=== PATIENT | female | born 1975 | race Caucasian/White ===

== ENCOUNTER 2017-07-18 15:52 | Emergency (ER) | payer MEDICAID ==
[~2017-07-18] VITALS: Ht 157.5 cm; Wt 78.0 kg
[~2017-07-18 15:52] MED LIST: ONDA4TAB35 PO
[2017-07-18 15:54] VITALS: Ht 157.5 cm; Wt 78.0 kg
[2017-07-18] MEDS ORDERED: ACETAMINOPHEN 500 MG TAB PO STA (16:45)
[2017-07-18] MEDS ORDERED: MECLIZINE 12.5 MG TAB PO ONE (17:00)
--- NOTE | 2017-07-18 17:00 | ERD ---
ER Documentation Chief Complaint Chief Complaint felt dizzy x 2 today HPI This 42-year-old female who presents to the emergency department for any of frequent nosebleeds for the past 3 months. States that she started feeling dizzy today. States that she has had a headache for the past 3 days and she is taking ibuprofen and it goes away but then comes back. States that she does have some body aches but denies any fevers or chills, dysuria ROS All systems reviewed and are negative except as per history of present illness. Medications Home Meds Active Scripts Meclizine Hcl* (Antivert*) 12.5 Mg Tab, 25 MG PO Q6H Y for DIZZINESS, #20 TAB Prov:JUDD HAYES PA-C 07/18/17 Naproxen* (Naprosyn*) 500 Mg Tablet, 500 MG PO BID Y for PAIN AND/OR INFLAMMATION, #30 TAB Prov:JUDD HAYES PA-C 07/18/17 Sodium Chloride (Saline Nasal Mist) 126 Ml Mist, 2 SPRAY NASAL DAILY, #1 BOTTLE Prov:JUDD HAYES PA-C 07/18/17 Acetaminophen* (Tylophen*) 500 Mg Capsule, 1 CAP PO Q6H Y for PAIN AND OR ELEVATED TEMP, #30 CAP Prov:JUDD HAYES PA-C 07/18/17 Ondansetron Hcl* (Zofran* ODT) 4 mg -ODT Tab.disper, 4 MG PO Q8 Y for NAUSEA AND /OR VOMITING, #30 TAB Prov:JOSEF KEMP NP 03/14/15 Allergies Allergies: Coded Allergies: No Known Allergy (Unverified , 03/14/15) PMhx/Soc Medical and Surgical Hx: pt denies Medical Hx, pt denies Surgical Hx History of Surgery: No Anesthesia Reaction: No Hx Neurological Disorder: No Hx Respiratory Disorders: No Hx Cardiac Disorders: No Hx Psychiatric Problems: No Hx Miscellaneous Medical Probl: No Hx Alcohol Use: No Hx Substance Use: No Hx Tobacco Use: No Smoking Status: Never smoker Physical Exam Vitals Vital Signs Date Time Temp Pulse Resp B/P Pulse Ox O2 Delivery O2 Flow Rate FiO2 07/18/17 15:54 98.1 99 18 110/76 99 Physical Exam Const: NAD Head: Atraumatic Eyes: TMs normal. Right nare with evidence of blood. Not actively bleeding. Throat no erythema no exudate no vesicles Neck: Full range of motion..~ No meningismus. Resp: Clear to auscultation bilaterally Cardio: Regular rate and rhythm, no murmurs Abd: Soft, non tender, non distended. Normal bowel sounds Skin: No petechiae or rashes Back: No midline or flank tenderness Ext: No cyanosis, or edema Neur: Awake and alert cranial nerves II through XII intact. No gait ataxia Psych: Normal Mood and Affect Result Diagram: 07/18/17170307/18/171703 Results 24 hrs Laboratory Tests Test 07/18/17 17:04 White Blood Count 15.910^3/ul Red Blood Count 4.4210^6/ul Hemoglobin 13.1g/dl Hematocrit 38.5% Mean Corpuscular Volume 87.1fl Mean Corpuscular Hemoglobin 29.6pg Mean Corpuscular Hemoglobin Concent 34.0g/dl Red Cell Distribution Width 12.9% Platelet Count 64183^3/UL Mean Platelet Volume 10.4fl Neutrophils % 87.7% Lymphocytes % 6.7% Monocytes % 4.8% Eosinophils % 0.1% Basophils % 0.1% Nucleated Red Blood Cells % 0.0/100WBC Neutrophils # 13.910^3/ul Lymphocytes # 1.110^3/ul Monocytes # 0.810^3/ul Eosinophils # 0.010^3/ul Basophils # 0.010^3/ul Nucleated Red Blood Cells # 0.010^3/ul Urine Color YELLOW Urine Clarity CLEAR Urine pH 5.0 Urine Specific Perry 1.011 Urine Ketones NEGATIVEmg/dL Urine Nitrite NEGATIVEmg/dL Urine Bilirubin NEGATIVEmg/dL Urine Urobilinogen NEGATIVEmg/dL Urine Leukocyte Esterase NEGATIVELeu/ul Urine Microscopic RBC 37/HPF Urine Microscopic WBC 0/HPF Urine Hemoglobin 3+mg/dL Urine Glucose NEGATIVEmg/dL Urine Total Protein NEGATIVEmg/dl Urine Test NEGATIVE Sodium Level 140mmol/L Potassium Level 4.0mmol/L Chloride Level 102mmol/L Carbon Dioxide Level 26mmol/L Anion Gap 16 Blood Urea Nitrogen 12mg/dl Creatinine 0.61mg/dl Glucose Level 98mg/dl Calcium Level 9.5mg/dl Total Bilirubin 0.4mg/dl Direct Bilirubin 0.00mg/dl Indirect Bilirubin 0.4mg/dl Aspartate Amino Transf (AST/SGOT) 19IU/L Alanine Aminotransferase (ALT/SGPT) 35IU/L Alkaline Phosphatase 77IU/L Total Protein 7.5g/dl Albumin 4.4g/dl Globulin 3.10g/dl Albumin/Globulin Ratio 1.41 Current Medications Medications (Trade) Dose Ordered Sig/Bri Route PRN Reason Start Time Stop Time Status Last Admin Dose Admin Meclizine HCl (Antivert) 25 mg ONCE ONCE PO 07/18/17 17:00 07/18/17 17:01 DC 07/18/17 17:02 Acetaminophen (Tylenol Tab) 500 mg ONCE STAT PO 07/18/17 16:45 07/18/17 16:52 DC 07/18/17 17:02 DIAGNOSTIC IMAGING REPORT Patient: YON GATES : 1975 Age: 42 Sex: F MR #: [id number] DOS: 07/18/17 0000 Ordering MD: JUDD HAYES PA-C Location: [facility] Room/Bed: PROCEDURE: CT Brain without contrast. CLINICAL INDICATION: Pain, headache TECHNIQUE: Routine CT scan of the brain was performed on a high resolution multi detector scanner without intravenous contrast. One or more of the following dose reduction techniques were used: Automated exposure control; Adjustment of the mA and/or kV according to patient size; Use of iterative reconstruction technique. CTDI = 45 mGy. DLP = 720 mGy-cm. DICOM images are available. COMPARISON: No prior relevant examinations are available for comparison. FINDINGS: Hemorrhage: No evidence of intracranial hemorrhage. Acute ischemic changes: No evidence of acute ischemic changes. Mass effect: None. Parenchymal volume: Within normal limits for age. Ventricular system: Concordant with parenchymal volume. Chronic changes: Parenchymal attenuation is within normal limits. Extracranial soft tissues: Unremarkable. Calvarium: No fractures. Paranasal sinuses: Visualized paranasal sinuses are clear. Mastoid air cells: Visualized mastoid air cells are clear. IMPRESSION: No acute intracranial abnormalities. Normal appearance of the brain parenchyma. RPTAT: AADD .Jeff Guerrero MD, Date Time Electronically viewed and signed by .Jeff Guerrero MD, on 07/18/2017 19:00 .B/ CC: JUDD HAYES PA-C Procedures/MDM This a 42-year-old female who presents the emergency department today complaining of frequent nosebleeds for the past 3 months. Patient reported feeling dizzy today and has had a history of headache for the past 3 days that is also intermittent and sometimes resolves with ibuprofen but then returns. Patient did have some evidence of blood in her right nare however bleeding not active at this time. Given patient's age and complaints I did obtain laboratory work as well as imaging Laboratory workup shows an elevated white blood cell count of 15.9. She is not anemic. Platelets are within normal limits. Lites are within normal limits. Liver enzymes are within normal limits. Glucose is within normal limits. UA negative for infection. There are 37 microscopic red blood cells. Patient states she is currently on her menstrual cycle. Urine test is negative EKG interpreted by Dr. Lovett rate [address] elevation. No QT prolongation. Sinus tachycardia. Low suspicion for acute ND, PE, pericarditis Head CT non contrast shows no acute intracranial abnormalities. There is normal appearance of brain parenchyma. No evidence of acute ischemic changes Patient has multiple complaints of uncertain etiology. I have low suspicion for benign positional vertigo anemia, severe acute bacterial infection or sepsis as cause of dizziness and nosebleeds. Low suspicion for acute hemorrhage , mass, abscess, meningitis. Patient does have an elevated white blood cell count however her symptoms may be viral in nature as well as given her multiple complaints. I discussed the lab findings with Dr. Lovett and he is a patient is stable for discharge and outpatient management. Patient was given meclizine and Tylenol here in the emergency department she reported feeling symptomatically better. Patient was given a prescription for Naprosyn, Tylenol, nasal saline and meclizine. At this time the patient is stable for discharge and outpatient management. Patient should follow up with their PCP in the next 1-2 days. They may return to the emergency department sooner for any persistent or worsening of symptoms. Patient understood and agreed with the plan. Departure Diagnosis: Primary Impression: Dizziness Additional Impression: Nasal bleeding Condition: Fair JUDD HAYES PA-C Jul 18, 2017 17:00
[2017-07-18 17:17] LABS: BASOPHILS % 0.1 % (0.0-2.0); EOSINOPHILS % 0.1 % (0.0-7.0); HEMATOCRIT 38.5 % (37.0-47.0); HEMOGLOBIN 13.1 g/dl (12.0-16.0); LYMPHOCYTES # 1.1 10^3/ul (0.8-2.9); LYMPHOCYTES % 6.7 % (15.0-51.0); MEAN CORPUSCULAR HEMOGLOBIN 29.6 pg (29.0-33.0); MEAN CORPUSCULAR VOLUME 87.1 fl (82.0-101.0); MEAN PLATELET VOLUME 10.4 fl (7.4-10.4); MONOCYTE # 0.8 10^3/ul (0.3-0.9); MONOCYTES % 4.8 % (0.0-11.0); NEUTROPHIL # 13.9 10^3/ul (1.6-7.5); NEUTROPHILS % 87.7 % (39.0-77.0); PLATELET COUNT 247 10^3/UL (140-415); RED BLOOD COUNT 4.42 10^6/ul (4.20-5.40); RED CELL DISTRIBUTION WIDTH 12.9 % (11.5-14.5); WHITE BLOOD COUNT 15.9 10^3/ul (4.8-10.8)
[2017-07-18 17:34] LABS: ADD UMIC YES; UR ASCORBIC ACID NEGATIVE (NEGATIVE); UR BILIRUBIN (Dip) NEGATIVE (NEGATIVE); UR BLOOD (Dip) 3+ mg/dL (NEGATIVE); UR CLARITY CLEAR (CLEAR); UR COLOR YELLOW (YELLOW); UR GLUCOSE (Dip) NEGATIVE (NEGATIVE); UR KETONES (Dip) NEGATIVE (NEGATIVE); UR LEUKOCYTE ESTERASE (Dip) NEGATIVE Leu/ul (NEGATIVE); UR NITRITE (Dip) NEGATIVE (NEGATIVE); UR RBC 37 /HPF (0-5); UR SPECIFIC GRAVITY (Dip) 1.011 (1.003-1.030); UR TOTAL PROTEIN (Dip) NEGATIVE (NEGATIVE); UR UROBILINOGEN (Dip) NEGATIVE (NEGATIVE)
[2017-07-18 17:45] LABS: ALBUMIN 4.4 g/dl (3.3-4.9); ALBUMIN/GLOBULIN RATIO 1.41; BILIRUBIN,INDIRECT 0.4 mg/dl (0-1.1); BILIRUBIN,TOTAL 0.4 mg/dl (0.2-1.3); CALCIUM 9.5 mg/dl (8.4-10.2); CREATININE 0.61 mg/dl (0.44-1.00); TOTAL PROTEIN 7.5 g/dl (6.1-8.1)
--- NOTE | 2017-07-18 19:00 | RADRPT ---
PROCEDURE: CT Brain without contrast. CLINICAL INDICATION: Pain, headache TECHNIQUE: Routine CT scan of the brain was performed on a high resolution multi detector scanner without intravenous contrast. One or more of the following dose reduction techniques were used: Auto mated exposure control; Adjustment of the mA and/or kV according to patient size; Use of iterative r econstruction technique. CTDI = 45 mGy. DLP = 720 mGy-cm. DICOM images are available. COMPARISON: No prior relevant examinations are available for comparison. FINDINGS: Hemorrhage: No evidence of intracranial hemorrhage. Acute ischemic changes: No evidence of acute ischemic changes. Mass effect: None. Parenchymal volume: Within normal limits for age. Ventricular system: Concordant with parenchymal volume. Chronic changes: Parenchymal attenuation is within normal limits. Extracranial soft tissues: Unremarkable. Calvarium: No fractures. Paranasal sinuses: Visualized paranasal sinuses are clear. Mastoid air cells: Visualized mastoid air cells are clear. IMPRESSION: No acute intracranial abnormalities. Normal appearance of the brain parenchyma. RPTAT: AADD .Jeff Guerrero MD, MD Date Time Electronically viewed and signed by .Jeff Guerrero MD, MD on 07/18/2017 19:00 .B/
[2017-07-18] MEDS ORDERED: SODI126M NASAL (19:22)
[2017-07-18] MEDS ORDERED: ACET500C5 PO (19:22)
[2017-07-18] MEDS ORDERED: NAPR-260 PO (19:23)
[2017-07-18] MEDS ORDERED: MECL12.574 PO (19:25)
[2017-07-18 19:40] VITALS: BP 114/71; PULSE 100; RESP 16
== END 2017-07-18 19:43 | disposition home or self-care (01) ==
LOC: FTE 15:52
DX: R42 Dizziness and giddiness (principal); R04.0 Epistaxis
CPT/HCPCS: 70450; 80053; 81001; 84703; 85025; 93005; Z7502; Z7610